=== PATIENT | male | born 1940 | race Caucasian/White ===

== ENCOUNTER 2021-07-19 00:43 | Emergency (ER) | payer MEDICARE, OTHER, SELFPAY ==
[2021-07-19] VITALS (14 sets, daily range): BP systolic 104–144; BP diastolic 39–70; PULSE 45–54; RESP 16–24; TEMP 35.7–36.9; O2SAT 93–100; BMI 34.5
--- NOTE | ~2021-07-19 | CT_ITS ---
EXAMINATION: CT CHEST WITHOUT CONTRAST CLINICAL INFORMATION: Cough COMPARISON: None TECHNIQUE: Multidetector volumetric CT imaging of the chest was done. Axial MIP volume rendering provided. Sagittal and coronal reformatted images were obtained. This CT examination was performed using dose optimization techniques as appropriate, variously including the following: *Automated exposure control *Adjustment of mA and/or kV according to patient size (this includes techniques or standardized protocols for targeted exams where dose is matched to indication/reason for exam; i.e. extremities or head) *Use of iterative reconstruction technique DLP: 504 mGy-cm FINDINGS: BRANCH LENDING MANAGER: Bilateral pleural effusions noted. LUNGS: The central airways are patent. Bronchial wall thickening noted. Small bilateral pleural effusions. Right lower lobe dense consolidation. Minimal left basilar atelectasis. Subtle groundglass opacities of the right middle lobe peripherally and inferior right upper lobe near the fissure. No pneumothorax. MEDIASTINUM: Large heart. No pericardial effusion. No mediastinal lymphadenopathy. AXILLA: No lymphadenopathy. UPPER ABDOMEN: Unremarkable. OSSEOUS STRUCTURES: No acute or suspicious osseous abnormality. Degenerative changes throughout the spine. CT/CT chest wo con IMPRESSION: Small pleural effusions. Right lower lobe consolidation could represent atelectasis or pneumonia. Minimal left basilar atelectasis. Scattered groundglass opacities could be infectious or inflammatory. Fleischner guidelines were followed.
--- NOTE | 2021-07-19 01:04 | ECG_ITS ---
Test Reason : ANEMIA Blood Pressure : / mmHG Vent. Rate : 050 BPM Atrial Rate : 050 BPM P-R Int : 190 ms QRS Dur : 092 ms QT Int : 490 ms P-R-T Axes : 046 000 009 degrees QTc Int : 446 ms Sinus bradycardia Otherwise normal ECG No previous ECGs available Referred By: Ashlee Neely Electronically Signed By:ALPHONSE SAMAYOA MD
--- NOTE | 2021-07-19 01:06 | ED_ITS ---
HPI - Recheck/Abnormal Lab/Rx General Chief Complaint: Recheck/Abnormal Lab/Rx Stated Complaint: abnormal labs Time Seen by Provider: 07/19/21 01:03 Source: patient and fast food supervisor Mode of arrival: EMS Limitations: no limitations History of Present Illness HPI narrative: just admitted to [facility] 06/10 with COPD also found to pleural effusions and PE, CAP, anemia with hemoglobin of 6.2 had prolonged stay requiring transfusions, IV diuresis, TTE EF 50 to 60%, loculated large right pleural effusion requiring thora / with chest tube since procalcitonin was elevated consistent with empyema, given PE was taken off eliquis and put on lovenox BID, sent to rehab for deconditioning, completed 10 days of zosyn for pneumonia. DC date was 07/09/2021 complaint: abnormal lab Initial visit (ago): day(s) (1) Returns today for: called because of abnormal lab/test Description of abnormal result: hemoglobin 5.6 (DC on 07/08 was 7.6 from [facility]) Symptoms since prior visit: no new symptoms Context: called for abnormal lab result Associated symptoms: none Related Data Allergies Allergy/AdvReac Type Severity Reaction Status Date / Time codeine Allergy Unknown Unknown Verified 07/19/21 01:03 Review of Systems Verdana 4l Review of Systems: Verdana 4d Verdana 4d Constitutional : No Weight loss, No Fever, No Chills, No Fatigue, No Malaise ENT/Mouth : No sore throat, No Rhinorrhea Eyes: No Eye Pain, No Swelling, No Redness Cardiovascular : No Chest Pain, No SOB, No Dyspnea on Exertion, No Orthopnea,, No Edema, No Palpitations Respiratory : No Cough, No Sputum, No Wheezing Gastrointestinal : No Nausea, No Vomiting, No Diarrhea, No Constipation, No abdominal Pain, No Hematochezia, No Melena Genitourinary : No Dysuria, No Urinary Frequency, No Hematuria, Musculoskeletal : No joint pain, No Myalgias, No Joint Swelling Skin : No Skin Lesions, No rash Neuro : No Weakness, No Numbness, No Dizziness, No Headache Psych : No Anxiety/Panic, No Depression Heme/Lymph: No Bruising, No Bleeding,No Lymphadenopathy Endocrine : No Polyuria, No Polydipsia All other systems reviewed and are negative [facility] Past Medical History Source: old records reviewed Medical History BPH (benign prostatic hyperplasia) CAP (community acquired pneumonia) Chronic anemia Chronic respiratory failure CKD (chronic kidney disease) CMML (chronic myelomonocytic leukemia) HTN (hypertension) STEPHANIE (obstructive sleep apnea) Pulmonary embolus Social History Social History Patient Tobacco Use Status: Former Tobacco user Advance Directives: No Physical Exam Verdana 4l Vital Signs: Verdana 4d Verdana 4d Vital Signs: Verdana 4d Verdana 4Bd Last Vital Signs Verdana 4d Willower New 4d Willower New 4d Temp 96.2 F L 07/19/21 05:55 Willower New 4d Pulse 45 L 07/19/21 05:55 Willower New 4d Resp 18 07/19/21 05:55 BP 133/66 07/19/21 05:55 Pulse Ox 100 07/19/21 02:58 Oxygen Flow Rate 4 07/19/21 00:52 BMI result Body Mass Index 34.5 Appearance: Alert. Oriented X3. No acute distress. Eyes: Pupils equal, round and reactive to light. ENT: Pharynx normal. Neck: Normal inspection. Neck supple. CVS: Normal heart rate and rhythm. Pulses normal. Respiratory: No respiratory distress. Breath sounds diminished at bases Abdomen: Soft and nontender. Rectal: brown stool Skin: Skin warm and dry. pale skin color. Normal skin turgor. Extremities: No lower extremity edema. No calf ttp Neuro: Oriented X 3. No motor deficit. No sensory deficit. Course Course Course Narrative: COVID + but believes he tested positive on the when he got to [facility] this is not a new dx Cr 2.[address] scan appears unchanged from [facility] - note states large loculated right pleural effusion with consolidation of RLL - today has no elevation in procalcitonin hemoglobin 6.9 will repeat one unit of blood doing well will likely DC home afterwards, signed out to Dr. Schmitt MDM - Recheck/Abnormal Lab/Rx MDM Narrative Medical decision making narrative: 80 yo male with extensive PMH including recent R sided empyema, HFprEF, CKD, chr onic resp failure, COPD, CMML with chronic anemia requiring transfusion - last hemoglobin at [facility] on DC 7.6 comes in for hemoglobin at facility of 5.6 at this time he states he feels fine has no complaints doing well on his 4L NC baseline will repeat labs and transfuse the patient. Lab Data Result diagrams: 07/19/21 06:51 07/19/21 02:01 Labs: Lab Results 07/19/21 07/19/21 07/19/21 Range/Units 01:48 02:01 02:01 WBC 3.3 L (4.8-10.8) X10*3/uL RBC 1.85 L (4.60-5.80) X10*6/uL Hgb 5.8 L* (14.0-18.0) g/dl Hct 17.9 L* (42.0-52.0) % MCV 96.8 (80.0-98.0) fL MCH 31.4 (27.0-33.0) pg MCHC 32.4 (31.0-36.0) g/dl RDW 17.8 H (11.0-16.0) % Plt Count 160 (160-400) X10*3/uL MPV 10.1 (9.4-12.4) fL Immature Gran % (Auto) 0.6 H (0.0-0.4) % Neut % (Auto) 63.4 (45-73) % Lymph % (Auto) 16.8 L (20-40) % Avery % (Auto) 17.4 H (2-11) % Eos % (Auto) 1.8 (0-4) % Baso % (Auto) 0.0 (0-2) % Lymph # (Auto) 0.6 L (1.2-4.9) X10*3/uL Avery # (Auto) 0.6 (0.1-1.2) X10*3/uL Eos # (Auto) 0.1 (0.0-0.4) X10*3/uL Baso # (Auto) 0.0 (0.0-0.2) X10*3/uL Abs Immat Gran (auto) 0.02 (0.00-0.03) X10*3/uL Absolute Neuts (auto) 2.1 (2.0-8.3) x10*3/uL Absolute Nucleated RBC 0.000 (0.0-0.012) X10*3/uL Nucleated RBC % (auto) 0.0 (0.0-0.2) /100WBC Smear Tech's Comments VERIFIED PT (9.9-13.0) SEC INR (0.9-1.1) APTT (24.1-38.0) SEC Sodium 139 (135-145) mmol/L Potassium 4.0 (3.3-5.1) mmol/L Chloride 104 (96-108) mmol/L Carbon Dioxide 25 (22-29) mmol/L Anion Gap 14 (12-20) BUN 41 H (9-16) mg/dL Creatinine 1.97 H (0.5-1.4) mg/dL Estim Creat Clear Calc 35.3 Estimated GFR 33 Random Glucose 108 (60-115) mg/dL Lactic Acid (0.5-2.0) mmol/L Calcium 8.5 (8.4-10.2) mg/dL Magnesium 2.0 (1.6-2.6) mg/dL Ferritin 1921 H (20-250) ng/mL Total Bilirubin 0.6 (0.0-1.0) mg/dL Direct Bilirubin 0.3 (0.0-0.5) mg/dL AST 10 (5-37) U/L ALT 13 (0-40) U/L Alkaline Phosphatase 141 H (39-117) U/L Lactate Dehydrogenase 162 (118-273) U/L Troponin I High Sens (<3.5-35.0) ng/L B-Natriuretic Peptide (<100) pg/mL Total Protein 5.9 L (6.5-8.0) g/dL Albumin 3.2 L (3.5-5.0) g/dL Lipase 34 (8-78) U/L Procalcitonin ng/mL Stool Occult Blood NEGATIVE (NEGATIVE) COVID-19 (TRENT) (Negative) COVID-19 Clin Com Blood Type Antibody Screen Crossmatch 07/19/21 07/19/21 07/19/21 Range/Units 02:01 02:01 02:01 WBC (4.8-10.8) X10*3/uL RBC (4.60-5.80) X10*6/uL Hgb (14.0-18.0) g/dl Hct (42.0-52.0) % MCV (80.0-98.0) fL MCH (27.0-33.0) pg MCHC (31.0-36.0) g/dl RDW (11.0-16.0) % Plt Count (160-400) X10*3/uL MPV (9.4-12.4) fL Immature Gran % (Auto) (0.0-0.4) % Neut % (Auto) (45-73) % Lymph % (Auto) (20-40) % Avery % (Auto) (2-11) % Eos % (Auto) (0-4) % Baso % (Auto) (0-2) % Lymph # (Auto) (1.2-4.9) X10*3/uL Avery # (Auto) (0.1-1.2) X10*3/uL Eos # (Auto) (0.0-0.4) X10*3/uL Baso # (Auto) (0.0-0.2) X10*3/uL Abs Immat Gran (auto) (0.00-0.03) X10*3/uL Absolute Neuts (auto) (2.0-8.3) x10*3/uL Absolute Nucleated RBC (0.0-0.012) X10*3/uL Nucleated RBC % (auto) (0.0-0.2) /100WBC Smear Tech's Comments PT 15.2 H (9.9-13.0) SEC INR 1.3 H (0.9-1.1) APTT 52.9 H (24.1-38.0) SEC Sodium (135-145) mmol/L Potassium (3.3-5.1) mmol/L Chloride (96-108) mmol/L Carbon Dioxide (22-29) mmol/L Anion Gap (12-20) BUN (9-16) mg/dL Creatinine (0.5-1.4) mg/dL Estim Creat Clear Calc Estimated GFR Random Glucose (60-115) mg/dL Lactic Acid (0.5-2.0) mmol/L Calcium (8.4-10.2) mg/dL Magnesium (1.6-2.6) mg/dL Ferritin (20-250) ng/mL Total Bilirubin (0.0-1.0) mg/dL Direct Bilirubin (0.0-0.5) mg/dL AST (5-37) U/L ALT (0-40) U/L Alkaline Phosphatase (39-117) U/L Lactate Dehydrogenase (118-273) U/L Troponin I High Sens (<3.5-35.0) ng/L B-Natriuretic Peptide 365 H (<100) pg/mL Total Protein (6.5-8.0) g/dL Albumin (3.5-5.0) g/dL Lipase (8-78) U/L Procalcitonin ng/mL Stool Occult Blood (NEGATIVE) COVID-19 (TRENT) Positive A (Negative) COVID-19 Clin Com See Note Blood Type Antibody Screen Crossmatch 07/19/21 07/19/21 07/19/21 Range/Units 02:01 02:01 02:01 WBC (4.8-10.8) X10*3/uL RBC (4.60-5.80) X10*6/uL Hgb (14.0-18.0) g/dl Hct (42.0-52.0) % MCV (80.0-98.0) fL MCH (27.0-33.0) pg MCHC (31.0-36.0) g/dl RDW (11.0-16.0) % Plt Count (160-400) X10*3/uL MPV (9.4-12.4) fL Immature Gran % (Auto) (0.0-0.4) % Neut % (Auto) (45-73) % Lymph % (Auto) (20-40) % Avery % (Auto) (2-11) % Eos % (Auto) (0-4) % Baso % (Auto) (0-2) % Lymph # (Auto) (1.2-4.9) X10*3/uL Avery # (Auto) (0.1-1.2) X10*3/uL Eos # (Auto) (0.0-0.4) X10*3/uL Baso # (Auto) (0.0-0.2) X10*3/uL Abs Immat Gran (auto) (0.00-0.03) X10*3/uL Absolute Neuts (auto) (2.0-8.3) x10*3/uL Absolute Nucleated RBC (0.0-0.012) X10*3/uL Nucleated RBC % (auto) (0.0-0.2) /100WBC Smear Tech's Comments PT (9.9-13.0) SEC INR (0.9-1.1) APTT (24.1-38.0) SEC Sodium (135-145) mmol/L Potassium (3.3-5.1) mmol/L Chloride (96-108) mmol/L Carbon Dioxide (22-29) mmol/L Anion Gap (12-20) BUN (9-16) mg/dL Creatinine (0.5-1.4) mg/dL Estim Creat Clear Calc Estimated GFR Random Glucose (60-115) mg/dL Lactic Acid 0.8 (0.5-2.0) mmol/L Calcium (8.4-10.2) mg/dL Magnesium (1.6-2.6) mg/dL Ferritin (20-250) ng/mL Total Bilirubin (0.0-1.0) mg/dL Direct Bilirubin (0.0-0.5) mg/dL AST (5-37) U/L ALT (0-40) U/L Alkaline Phosphatase (39-117) U/L Lactate Dehydrogenase (118-273) U/L Troponin I High Sens 6.9 (<3.5-35.0) ng/L B-Natriuretic Peptide (<100) pg/mL Total Protein (6.5-8.0) g/dL Albumin (3.5-5.0) g/dL Lipase (8-78) U/L Procalcitonin 0.13 ng/mL Stool Occult Blood (NEGATIVE) COVID-19 (TRENT) (Negative) COVID-19 Clin Com Blood Type Antibody Screen Crossmatch 07/19/21 07/19/21 Range/Units 02:25 06:51 WBC 3.3 L (4.8-10.8) X10*3/uL RBC 2.19 L (4.60-5.80) X10*6/uL Hgb 6.9 L* (14.0-18.0) g/dl Hct 20.9 L* (42.0-52.0) % MCV 95.4 (80.0-98.0) fL MCH 31.5 (27.0-33.0) pg MCHC 33.0 (31.0-36.0) g/dl RDW 17.1 H (11.0-16.0) % Plt Count 133 L (160-400) X10*3/uL MPV 9.7 (9.4-12.4) fL Immature Gran % (Auto) (0.0-0.4) % Neut % (Auto) (45-73) % Lymph % (Auto) (20-40) % Avery % (Auto) (2-11) % Eos % (Auto) (0-4) % Baso % (Auto) (0-2) % Lymph # (Auto) (1.2-4.9) X10*3/uL Avery # (Auto) (0.1-1.2) X10*3/uL Eos # (Auto) (0.0-0.4) X10*3/uL Baso # (Auto) (0.0-0.2) X10*3/uL Abs Immat Gran (auto) (0.00-0.03) X10*3/uL Absolute Neuts (auto) (2.0-8.3) x10*3/uL Absolute Nucleated RBC 0.000 (0.0-0.012) X10*3/uL Nucleated RBC % (auto) 0.0 (0.0-0.2) /100WBC Smear Tech's Comments PT (9.9-13.0) SEC INR (0.9-1.1) APTT (24.1-38.0) SEC Sodium (135-145) mmol/L Potassium (3.3-5.1) mmol/L Chloride (96-108) mmol/L Carbon Dioxide (22-29) mmol/L Anion Gap (12-20) BUN (9-16) mg/dL Creatinine (0.5-1.4) mg/dL Estim Creat Clear Calc Estimated GFR Random Glucose (60-115) mg/dL Lactic Acid (0.5-2.0) mmol/L Calcium (8.4-10.2) mg/dL Magnesium (1.6-2.6) mg/dL Ferritin (20-250) ng/mL Total Bilirubin (0.0-1.0) mg/dL Direct Bilirubin (0.0-0.5) mg/dL AST (5-37) U/L ALT (0-40) U/L Alkaline Phosphatase (39-117) U/L Lactate Dehydrogenase (118-273) U/L Troponin I High Sens (<3.5-35.0) ng/L B-Natriuretic Peptide (<100) pg/mL Total Protein (6.5-8.0) g/dL Albumin (3.5-5.0) g/dL Lipase (8-78) U/L Procalcitonin ng/mL Stool Occult Blood (NEGATIVE) COVID-19 (TRENT) (Negative) COVID-19 Clin Com Blood Type A Positive Antibody Screen NEGATIVE Crossmatch See Detail ECG Data Attestation: I personally reviewed and interpreted this ECG as follows: ECG interpretation date: 07/19/21 ECG interpretation time: 02:50 Interpretation: Rate: 50 Rhythm: sinus bradycardia [place]: normal Normal P waves. Normal PAUL. Normal QRS complex. ST T wave : nonspecific no FARIBA, artifact noted qTC: normal prior studies: no acute ischemia The study has been interpreted contemporaneously by me. . Discharge Plan Discharge Clinical Impression: Anemia in chronic illness, CKD (chronic kidney disease) Patient Disposition: Still a Patient Instructions: Chronic Kidney Disease (ED), Anemia (ED) Additional Instructions: return to ED for any worsening symptoms or concerns given one unit of blood in the emergency department, negative for blood in stool, CT scan improved from previous can at [facility] recheck hemoglobin in 1 day, follow up with primary provider or licensed aircraft maintenance engineer/oncologist in the next couple of days
[2021-07-19 01:53] LABS: OBS Int Ctl Valid YES; OBS1 NEGATIVE (NEGATIVE)
[2021-07-19 02:14] LABS: Eosinophils Absolute Auto 0.1 X10*3/uL (0.0-0.4); Eosinophils Percent Auto 1.8 % (0-4); Mean Corpuscular HGB Conc 32.4 g/dl (31.0-36.0); Mean Corpuscular Hemoglobin 31.4 pg (27.0-33.0); Mean Corpuscular Volume 96.8 fL (80.0-98.0); PLT CLUMP 1; Red Blood Count 1.85 X10*6/uL (4.60-5.80); Red Cell Distribution Width 17.8 % (11.0-16.0); SCAN SMEAR FLAG 1
[2021-07-19 02:16] LABS: Imm Gran Abs Auto 0.02 X10*3/uL (0.00-0.03); Imm Gran Pct Auto 0.6 % (0.0-0.4); Lymphocytes Absolute Auto 0.6 X10*3/uL (1.2-4.9); Lymphocytes Percent Auto 16.8 % (20-40); MANUAL DIFF FLAG SCAN; Mean Platelet Volume 10.1 fL (9.4-12.4); Monocytes Absolute Auto 0.6 X10*3/uL (0.1-1.2); Monocytes Percent Auto 17.4 % (2-11); Neutrophils Absolute Auto 2.1 x10*3/uL (2.0-8.3); Neutrophils Percent Auto 63.4 % (45-73)
[2021-07-19 02:20] LABS: Platelet Count 160 X10*3/uL (160-400); White Blood Count 3.3 X10*3/uL (4.8-10.8)
[2021-07-19 02:21] LABS: Hematocrit 17.9 % (42.0-52.0); Hemoglobin 5.8 g/dl (14.0-18.0)
[2021-07-19 02:22] LABS: INTERNATIONAL NORM RATIO 1.3 (0.9-1.1); Prothrombin Time 15.2 SEC (9.9-13.0)
[2021-07-19 02:24] LABS: Lactic Acid 0.8 mmol/L (0.5-2.0)
[2021-07-19 02:25] LABS: Partial Thromboplastin Time 52.9 SEC (24.1-38.0)
[2021-07-19 02:27] LABS: COVID-19 Test Positive (Negative); IDNOW Serial# 55D5AD1C
--- NOTE | 2021-07-19 02:33 | PC.NURSE ---
call placed to [facility] regarding what date pt initially tested positive for COVID on - per the nursing staff they were unaware that he was positive. .
[2021-07-19 02:35] LABS: B Type Natriuretic Peptide 365 pg/mL (<100); Troponin-I High Sensitivity 6.9 ng/L (<3.5-35.0)
[2021-07-19 02:48] LABS: Alanine Aminotransferase 13 U/L (0-40); Albumin Level 3.2 g/dL (3.5-5.0); Alkaline Phosphatase 141 U/L (39-117); Anion Gap 14 (12-20); Aspartate Amino Transferase 10 U/L (5-37); Bilirubin Direct 0.3 mg/dL (0.0-0.5); Bilirubin Total 0.6 mg/dL (0.0-1.0); Blood Urea Nitrogen 41 mg/dL (9-16); Calcium 8.5 mg/dL (8.4-10.2); Carbon Dioxide 25 mmol/L (22-29); Chloride 104 mmol/L (96-108); Creatinine Clr Calc Pharmacy 35.3; Estimated Glomerular Filt Rate 33; Glucose Random 108 mg/dL (60-115); Lactate Dehydrogenase 162 U/L (118-273); Lipase 34 U/L (8-78); Sodium 139 mmol/L (135-145); Total Protein 5.9 g/dL (6.5-8.0)
[2021-07-19 03:28] LABS: Procalcitonin 0.13 ng/mL
[2021-07-19 03:31] LABS: SLIDE REVIEW VERIFIED
--- NOTE | 2021-07-19 04:07 | PC.NURSE ---
Assumed care of pt Pt made aware of transfusion. Pt verbalized understanding Awaiting 1st unit Will continue to monitor
[2021-07-19 04:08] LABS: Ferritin 1921 ng/mL (20-250)
--- NOTE | 2021-07-19 04:25 | PC.NURSE ---
First unit of PRBCs started Pt tolerating well Will continue to monitor
[2021-07-19 06:56] LABS: Mean Corpuscular Hemoglobin 31.5 pg (27.0-33.0); Mean Corpuscular Volume 95.4 fL (80.0-98.0); Mean Platelet Volume 9.7 fL (9.4-12.4); Platelet Count 133 X10*3/uL (160-400); Red Blood Count 2.19 X10*6/uL (4.60-5.80); Red Cell Distribution Width 17.1 % (11.0-16.0); White Blood Count 3.3 X10*3/uL (4.8-10.8)
[2021-07-19 07:00] LABS: Hemoglobin 6.9 g/dl (14.0-18.0)
[2021-07-19 07:01] LABS: Hematocrit 20.9 % (42.0-52.0)
--- NOTE | 2021-07-19 07:51 | PC.NURSE ---
Upon verifying 2nd unit of RBCs, pts last name spelled wrong, pt confirms last name is GINTIS, registration and blood bank made aware. New Type/screen to be drawn and new unit to be issued Pt is alert and oriented, denies pain or discomfort. Skin pale. On 4lpm via nc, states baseline per pt. LS diminished throughout. VSS.
--- NOTE | 2021-07-19 10:09 | PC.NURSE ---
2nd unit of RBCs started.Pt alert/awake. Offers no complaints. RBCs transfusing without difficulty
--- NOTE | 2021-07-19 10:22 | PC.NURSE ---
15 min vitals completed s/p start of transfusion, no rx noted. VSS sinus kaci on tele
--- NOTE | 2021-07-19 15:41 | PC.NURSE ---
spoke w nurse at [facility], updated on pt status.
--- NOTE | 2021-07-19 15:51 | PC.NURSE ---
pt a&ox3, vss, waiting for ride back to housing.
== END 2021-07-19 17:18 | disposition skilled nursing facility (03) ==
PROVIDERS: Emergency Provider Emergency Medicine; PCP Obstetrics & Gynecology
DX: U07.1 COVID-19 (principal); D63.1 Anemia in chronic kidney disease; I12.9 Hypertensive chronic kidney disease with stage 1 through stage 4 chronic kidney disease, or unspecified chronic kidney disease; N18.9 Chronic kidney disease, unspecified
CPT/HCPCS: 36415; 36430; 71250; 80048; 80076; 82272; 82728; 83605; 83615; 83690; 83735; 83880; 84145; 84484; 85025; 85027; 85610; 85730; 86850; 86900; 86901; 86920; 86923; 87040; 87635; 93005; 99284; 99285; P9016